=== PATIENT | male | born 1960 | race Asian ===

== ENCOUNTER 2023-11-08 21:39 | Emergency (ER) | payer OTHER ==
[~2023-11-08] VITALS: Ht 152.4 cm; Wt 49.9 kg
[~2023-11-08 21:39] MED LIST: CIPR500T4 PO; OMEP40EC24 PO
[2023-11-08 21:49] VITALS: BP 149/88; PULSE 88; RESP 17; TEMP 98; O2SAT 97
[2023-11-08] MEDS ORDERED: IBUP-2213 PO (22:21)
[2023-11-08] MEDS ORDERED: ACET-2619 PO (22:21)
[2023-11-08] MEDS ORDERED: CYCL-711 PO (22:21)
[2023-11-08] MEDS: KETOROLAC 30 MG/ML VIAL IM ONE (22:26)
[2023-11-08 22:50] VITALS: BP 149/88; PULSE 88; RESP 17; TEMP 98; O2SAT 97
== END 2023-11-08 22:50 | disposition home or self-care (01) ==
LOC: MED 21:39
DX: M54.32 Sciatica, left side (principal); Z79.899 Other long term (current) drug therapy
CPT/HCPCS: 96372; 99283; J1885

== ENCOUNTER 2023-12-04 02:14 | Emergency (ER) | payer MEDICAID, OTHER ==
[~2023-12-04] VITALS: Ht 162.6 cm; Wt 52.2 kg
[~2023-12-04 02:14] MED LIST changes: +ACET-2619 PO; +CYCL-711 PO; +IBUP-2213 PO
[2023-12-04 03:13] VITALS: BP 151/91; PULSE 72; RESP 16; TEMP 97.8; O2SAT 98
[2023-12-04] MEDS ORDERED: CEPH-588 PO (04:16)
== END 2023-12-04 04:25 | disposition home or self-care (01) ==
LOC: MED 02:14
DX: L03.011 Cellulitis of right finger (principal); Z79.899 Other long term (current) drug therapy
CPT/HCPCS: 99284